=== PATIENT | male | born 2005 | race African-American/Black ===

== ENCOUNTER → 2024-01-18 | Day surgery (SDC) | payer BC ==
[~2024-01-18] MED LIST: FENTANYL CITRATE/PF 100MCG/2 ML INJ ONE; HYOSCYAMINE SULFATE 0.5 MG/ML INJ ONE; LIDOCAINE HCL 2% LOCAL INJ 5 ML SDV VIAL INJ ONE; MIDAZOLAM HCL 2 MG/2 ML VIAL ONE; PROPOFOL IV EMULSION 10 MG/ML 50 ML VIAL IV ONE
[2024-01-18] MEDS: LACTATED RINGER'S 1,000 ML ONE (13:43)
[2024-01-18 17:00] VITALS: BP 115/65; PULSE 73; RESP 14; TEMP 97.6; O2SAT 98
== END | disposition home or self-care (01) ==
LOC: OR 13:26
PROVIDERS: ATTEND Internal Medicine Gastroenterology
DX: Z09 Encounter for follow-up examination after completed treatment for conditions other than malignant neoplasm (principal); Z93.3 Colostomy status; K52.9 Noninfective gastroenteritis and colitis, unspecified; K62.89 Other specified diseases of anus and rectum; K64.8 Other hemorrhoids; F43.10 Post-traumatic stress disorder, unspecified
CPT/HCPCS: 45380; J1980; J2001; J2250; J2704; J3010; J7121